=== PATIENT | female | born 1990 | race Caucasian/White ===

== ENCOUNTER → 2017-04-13 | Outpatient (CLI) | payer BC | LOC: LAB 07:48 | PROVIDERS: ATTEND Obstetrics & Gynecology | DX: O99.810 Abnormal glucose complicating pregnancy (principal); Z3A.28 28 weeks gestation of pregnancy | CPT/HCPCS: 36415; 82951; 82952 ==

== ENCOUNTER → 2017-05-12 | Outpatient (CLI) | payer BC ==
[2017-05-12 14:11] LABS: SERUM ALBUMIN 3.5 g/dL (3.5-4.8)
[2017-05-18 12:41] LABS: CHENODEOXYCOHLIC ACID 2.39 nmol/mL (<=6.00); CHOLIC ACID 3.78 nmol/mL (<=5.00); DEOXYCHOLIC ACID 0.42 nmol/mL (<=6.00)
[2017-05-18 13:29] LABS: TOTAL BILE ACIDS 6.61 nmol/mL (<=19.00)
== END ==
LOC: LAB 13:49
DX: Z36 Encounter for antenatal screening of mother (principal); O26.893 Other specified pregnancy related conditions, third trimester; R21 Rash and other nonspecific skin eruption; Z3A.32 32 weeks gestation of pregnancy
CPT/HCPCS: 36415; 80076; 82542